=== PATIENT | female | born 1990 | race Two or more races ===

== ENCOUNTER 2023-08-24 09:10 | Emergency (ER) | payer OTHER ==
[~2023-08-24] VITALS: Ht 160 cm; Wt 68.5 kg
[2023-08-24] MEDS ORDERED: 0.9 % SODIUM CHLORIDE 1,000 ML IV STA (09:56)
[2023-08-24] MEDS ORDERED: MEPERIDINE HCL 25 MG/ML AMPUL IV ONE (10:00)
[2023-08-24 11:14] LABS: PH,URINE 5.5 (5.0-8.0); URINE APPEARANCE Cloudy; URINE BACTERIA 347.7 uL (0.0-1933); URINE BILIRRUBIN Negative (NEGATIVE); URINE BLOOD Large; URINE COLOR Yellow; URINE EPITHELIAL CELLS 33.5 uL (0.0-38.8); URINE GLUCOSE Negative (NEGATIVE); URINE LEUKOCYTE Negative; URINE NITRATE Negative; URINE PROTEIN Negative (NEGATIVE); URINE RBC 760.8 uL (0.0-20.8); URINE WBC 12.3 uL (0.0-23.2)
[2023-08-24 11:29] LABS: HEMATOCRIT 41.5 % (36.0-45.00); HEMOGLOBIN 14.5 g/dL (12.0-15.00); MEAN CORPUSCULAR HEMOGLOBIN 30.7 pg (27.00-32.0); MEAN CORPUSCULAR HGB CONC 34.9 g/dl (32.0-36.0); PLATELET COUNT 209 K/uL (150-450); RED BLOOD COUNT 4.72 M/uL (4.00-6.00); RED CELL DISTRIBUTION WIDTH 13.1 % (11.5-14.5)
[2023-08-24 11:53] LABS: CALCIUM 9.3 mg/dL (8.5-10.1); CREATININE SERUM 0.64 mg/dL (0.55-1.02); GFR 106.22; POTASSIUM 3.93 mEq/L (3.5-5.1)
[2023-08-24 11:55] LABS: URINE CRYSTALS FEW /HPF
[2023-08-24] MEDS ORDERED: MEPERIDINE HCL/PF 50 MG/ML VIAL IM ONE (13:30)
== END 2023-08-24 15:34 | disposition home or self-care (01) ==
LOC: ER 09:10
PROVIDERS: Emergency Medicine
DX: R10.9 Unspecified abdominal pain (principal); Z88.6 Allergy status to analgesic agent

== ENCOUNTER 2024-03-20 05:40 | Emergency (ER) | payer OTHER ==
[~2024-03-20] VITALS: Ht 162.6 cm; Wt 63.5 kg
[2024-03-20] MEDS ORDERED: 0.9 % SODIUM CHLORIDE 1,000 ML IV STA (06:32)
[2024-03-20] MEDS ORDERED: MEPERIDINE HCL/PF 50 MG/ML VIAL IM STA (06:32)
[2024-03-20] MEDS ORDERED: PROMETHAZINE HCL 50 MG/ML AMPUL IM STA (06:33)
[2024-03-20] MEDS ORDERED: HYOSCYAMINE SULFATE 0.125 MG TAB.SUBL SL STA (06:33)
[2024-03-20 07:41] LABS: HEMATOCRIT 38.7 % (36.0-45.00); HEMOGLOBIN 13.3 g/dL (12.0-15.00); MEAN CELL VOLUME 85.8 fL (80.00-100.00); MEAN CORPUSCULAR HEMOGLOBIN 29.5 pg (27.00-32.0); MEAN CORPUSCULAR HGB CONC 34.4 g/dl (32.0-36.0); PLATELET COUNT 171 K/uL (150-450); RED BLOOD COUNT 4.51 M/uL (4.00-6.00); RED CELL DISTRIBUTION WIDTH 14.1 % (11.5-14.5)
[2024-03-20 08:11] LABS: CALCIUM 9.3 mg/dL (8.5-10.1); CREATININE SERUM 0.69 mg/dL (0.55-1.02); GFR 96.82; POTASSIUM 3.85 mEq/L (3.5-5.1)
[2024-03-20 08:24] LABS: URINE APPEARANCE Cloudy; URINE BILIRRUBIN Negative (NEGATIVE); URINE BLOOD Negative; URINE COLOR Yellow; URINE GLUCOSE Negative (NEGATIVE); URINE KETONE Negative (NEGATIVE); URINE LEUKOCYTE Moderate; URINE NITRATE Negative; URINE PROTEIN Negative (NEGATIVE); URINE UROBILINOGEN 0.2 E.U./dl
[2024-03-20 08:26] LABS: URINE BACTERIA 1942.8 uL (0.0-1933); URINE EPITHELIAL CELLS 63.5 uL (0.0-38.8); URINE RBC 23.3 uL (0.0-20.8); URINE WBC 157.3 uL (0.0-23.2)
[2024-03-20 10:04] LABS: URINE CAST 0.91 uL (0.0-1.40)
[2024-03-20] MEDS ORDERED: CEFTRIAXONE SODIUM 1,000 MG VIAL IV STA (10:15)
== END 2024-03-20 10:24 | disposition home or self-care (01) ==
LOC: ER 05:42
DX: N39.0 Urinary tract infection, site not specified (principal); R10.9 Unspecified abdominal pain; Z88.6 Allergy status to analgesic agent

== ENCOUNTER 2024-03-20 19:19 | Emergency (ER) | payer OTHER ==
[~2024-03-20] VITALS: Ht 160 cm; Wt 72.6 kg
[2024-03-20] MEDS ORDERED: MEPERIDINE HCL/PF 25 MG/ML VIAL IV ONE (22:00)
[2024-03-20] MEDS ORDERED: PROMETHAZINE HCL 50 MG/ML AMPUL IV ONE (22:00)
== END 2024-03-20 22:54 | disposition home or self-care (01) ==
LOC: ER 19:20
DX: N39.0 Urinary tract infection, site not specified (principal); R10.9 Unspecified abdominal pain; Z88.6 Allergy status to analgesic agent